=== PATIENT | male | born 1940 | race Caucasian/White ===

== ENCOUNTER 2017-07-23 09:44 | Inpatient (IN) | payer MEDICARE ==
[~2017-07-23] VITALS: Ht 177.8 cm; Wt 95.0 kg
[~2017-07-23 09:44] MED LIST: ACET-711 PO; ASPI-650 PO; ASPI325T17 PO; CELE200C PO; DIAZ10TA PO; DIAZ10TA4 PO; OXYC1TAB9 PO; Phenergan PO; TAMS-11 PO; TEST1.25 TD; TRAZ300T2 PO
[2017-07-23] MEDS ORDERED: ONDANSETRON 2MG/ML, 2ML IVPush ONE (10:30)
[2017-07-23] MEDS ORDERED: SODIUM CHLORIDE FLUSH 10ML SYR IVF ONE (10:30)
[2017-07-23] MEDS ORDERED: MORPHINE SULFATE 4 MG/ML, 1ML IVPush PRN (10:30)
[2017-07-23] MEDS ORDERED: SODIUM CHLORIDE 0.9% 1,000ML IVBOLUS ONE (10:30)
[2017-07-23 10:38] LABS: BASOPHILS # (AUTO) 0.03 x10^3/uL (0-0.1); BASOPHILS % (AUTO) 0 % (0-1); EOSINOPHILS # (AUTO) 0.12 x10^3/uL (0-0.4); EOSINOPHILS % (AUTO) 1 % (1-7); LYMPHOCYTES # (AUTO) 2.36 x10^3/uL (1-3.4); LYMPHOCYTES % (AUTO) 23 % (22-44); MD NO; MEAN CORPUSCULAR HEMOGLOBIN 33.5 pg (27.5-34.5); MEAN CORPUSCULAR HGB CONC 33.6 g/dL (33.2-36.2); MEAN CORPUSCULAR VOLUME 99.5 fL (81-97); MEAN PLATELET VOLUME 7.2 fL (7.4-10.4); MONOCYTES # (AUTO) 1.22 x10^3/uL (0.2-0.8); MONOCYTES % (AUTO) 12 % (2-9); NEUTROPHILS # (AUTO) 6.75 x10^3/uL (1.8-6.8); NEUTROPHILS % (AUTO) 64 % (42-75); PLATELET COUNT 163 x10^3/uL (130-400); RED BLOOD COUNT 5.03 x10^6/uL (4.38-5.82); RED CELL DISTRIBUTION WIDTH 13.4 % (9.4-14.8)
[2017-07-23 10:52] LABS: ALBUMIN 3.6 g/dL (3.4-5.0); ANION GAP 9 mmol/L (5-15); CALCIUM 8.7 mg/dL (8.5-10.1); CHLORIDE 105 mmol/L (98-107); CREATININE 0.76 mg/dL (0.7-1.3)
[2017-07-23 10:57] LABS: TROPONIN I < 0.015 ng/mL (0.000-0.045)
[2017-07-23] MEDS ORDERED: KETOROLAC 30 MG/1 ML ONE (13:03)
[2017-07-23] MEDS ORDERED: DIAZEPAM 5 MG TABLET PO ONE (13:30)
[2017-07-23] MEDS ORDERED: KETOROLAC 30 MG/1 ML IVPush ONE ×2 (13:30)
[2017-07-23] MEDS ORDERED: DIAZEPAM 5 MG TABLET ONE (13:57)
[2017-07-23] MEDS ORDERED: POLYETHYLENE GLYCOL 17 GM PACKET PO PRN (14:30)
[2017-07-23] MEDS ORDERED: GUAIFENESIN/DM 200-20MG, 10ML UDC PO PRN (14:30)
[2017-07-23] MEDS ORDERED: HYDROcodone/APAP 5/325 TABLET PO PRN (14:30)
[2017-07-23] MEDS ORDERED: LABETALOL 5MG/ML, 20ML IVPush PRN (14:30)
[2017-07-23] MEDS ORDERED: ENOXAPARIN 40 MG/0.4 ML SQ SCH (14:30)
[2017-07-23] MEDS ORDERED: ONDANSETRON ODT 4 MG PO PRN (14:30)
[2017-07-23] MEDS ORDERED: ONDANSETRON 2MG/ML, 2ML IVPush PRN (14:30)
[2017-07-23] MEDS ORDERED: OXYcodone/APAP 10/325MG TABLET PO PRN (14:30)
[2017-07-23] MEDS ORDERED: ASPIRIN MC SCH (17:30)
[2017-07-23] MEDS: TAMSULOSIN 0.4 MG CAP.ER.24H PO SCH ×2 (17:41→20:09)
[2017-07-23 17:46] LABS: TROPONIN I < 0.015 ng/mL (0.000-0.045)
[2017-07-23 19:55] VITALS: BP 170/96
[2017-07-23] MEDS: APAP/CODEINE 300/60MG TABLET PO PRN (20:09)
[2017-07-23] MEDS ORDERED: TRAZODONE 150MG TABLET PO SCH (21:00)
[2017-07-23] MEDS: ASPIRIN 325 MG TABLET EC PO SCH (21:00)
[2017-07-23 22:39] LABS: TROPONIN I < 0.015 ng/mL (0.000-0.045)
[2017-07-24] MEDS: DIAZEPAM 5 MG TABLET PO PRN ×2 (00:03→08:18)
[2017-07-24 03:31] VITALS: BP 130/74
[2017-07-24 04:00] LABS: CULTURE INDICATED? YES; MICROSCOPIC INDICATED
[2017-07-24 05:44] LABS: BASOPHILS # (AUTO) 0.03 x10^3/uL (0-0.1); BASOPHILS % (AUTO) 0 % (0-1); EOSINOPHILS # (AUTO) 0.13 x10^3/uL (0-0.4); EOSINOPHILS % (AUTO) 2 % (1-7); LYMPHOCYTES % (AUTO) 26 % (22-44); MD NO; MEAN CORPUSCULAR HEMOGLOBIN 33.1 pg (27.5-34.5); MEAN CORPUSCULAR HGB CONC 33.5 g/dL (33.2-36.2); MEAN PLATELET VOLUME 7.6 fL (7.4-10.4); MONOCYTES # (AUTO) 0.88 x10^3/uL (0.2-0.8); MONOCYTES % (AUTO) 11 % (2-9); NEUTROPHILS % (AUTO) 61 % (42-75); PLATELET COUNT 169 x10^3/uL (130-400); RED BLOOD COUNT 4.96 x10^6/uL (4.38-5.82); RED CELL DISTRIBUTION WIDTH 13.6 % (9.4-14.8)
[2017-07-24 05:47] LABS: CHLORIDE 108 mmol/L (98-107)
[2017-07-24 05:58] LABS: ALANINE AMINOTRANSFERASE 26 U/L (12-78); ALBUMIN 3.2 g/dL (3.4-5.0); ALKALINE PHOSPHATASE 61 U/L (45-117); ANION GAP 7 mmol/L (5-15); BILIRUBIN,TOTAL 0.6 mg/dL (0.2-1.0); CALCIUM 8.5 mg/dL (8.5-10.1); CREATININE 0.64 mg/dL (0.7-1.3); TOTAL PROTEIN 7.1 g/dL (6.4-8.2); TROPONIN I < 0.015 ng/mL (0.000-0.045)
[2017-07-24 07:09] VITALS: BP 116/56
[2017-07-24] MEDS ORDERED: REGADENOSON 0.4 MG/5 ML SYRINGE ONE (08:29)
[2017-07-24] MEDS: TAMSULOSIN 0.4 MG CAP.ER.24H PO SCH (09:00)
[2017-07-24] MEDS ORDERED: TESTOSTERONE 1.25 GM TD SCH (09:00)
[2017-07-24] MEDS ORDERED: SENNA/DOCUSATE TABLET PO SCH (09:00)
[2017-07-24] MEDS ORDERED: AMLODIPINE 5 MG TABLET PO SCH (09:00)
[2017-07-24] MEDS: ASPIRIN 325 MG TABLET EC PO SCH (09:00)
[2017-07-24] MEDS ORDERED: ASPIRIN 325 MG TABLET EC PO SCH (09:00)
[2017-07-24] MEDS ORDERED: KETOROLAC 30 MG/1 ML IVPush ONE (09:30)
[2017-07-24] MEDS ORDERED: KETOROLAC 30 MG/1 ML ONE (09:31)
[2017-07-24] MEDS ORDERED: MORPHINE SULFATE 4 MG/ML, 1ML ONE (11:13)
[2017-07-24] MEDS ORDERED: MORPHINE SULFATE 4 MG/ML, 1ML IVPush PRN (11:30)
[2017-07-24 13:32] VITALS: BP 167/90
[2017-07-24] MEDS ORDERED: ASPI-515 PO (13:49)
[2017-07-24] MEDS ORDERED: AMLO2.5T PO (13:53)
[2017-07-24] MEDS: APAP/CODEINE 300/60MG TABLET PO PRN (14:02)
== END 2017-07-24 15:47 | disposition home or self-care (01) | DRG 392 ==
LOC: ED 11:46 → EDIP 12:02 → 5SO 14:39
PROVIDERS: ADMIT Internal Medicine; ATTEND Internal Medicine
DX: K21.9 Gastro-esophageal reflux disease without esophagitis (principal); D72.829 Elevated white blood cell count, unspecified; R07.2 Precordial pain; Z66 Do not resuscitate; I10 Essential (primary) hypertension; N40.1 Benign prostatic hyperplasia with lower urinary tract symptoms; R33.8 Other retention of urine; R51 Headache; M54.9 Dorsalgia, unspecified; Z86.14 Personal history of Methicillin resistant Staphylococcus aureus infection; Z87.891 Personal history of nicotine dependence; G89.29 Other chronic pain; Z90.49 Acquired absence of other specified parts of digestive tract
CPT/HCPCS: 36415; 71010; 78452; 80048; 80053; 81001; 82040; 83735; 83880; 84484; 85025; 87086; 93005; 93017; 93306; 96374; J1650; J1885; J2785; A9502; C9898